=== PATIENT | male | born 1950 | race Hispanic/Latino ===

== ENCOUNTER 2016-10-28 09:57 | Day surgery (SDC) | payer BC ==
[~2016-10-28 09:57] MED LIST: ADRENALIN ONE; DEPO-MEDROL ONE; MARCAINE-EPI 0.25%-1:200,000 INFILTRATI ONE; NACL 0.9% 1000 ML 1,000 ML IV SCH; PEPCID PO NR; SUBLIMAZE IV ONE; VANCOMYCIN/NS 1 GM/250 ML 1 GM/250 ML BAG IV NR; VERSED IV NR
[2016-10-28] MEDS ORDERED: CLONIDINE 1,000 MCG/10 ML VIAL EP ONE (12:03)
[2016-10-28] MEDS ORDERED: XYLOCAINE 1% 20 mL ONE (12:03)
[2016-10-28] MEDS ORDERED: DECADRON ONE (12:03)
--- NOTE | 2016-10-28 12:08 | Anesthesia Consultation ---
Anesthesia Consult and Med Hx Date of service: 10/28/16 - Airway Anesthetic Teeth Evaluation: Caps ROM Head & Neck: Adequate Mental/Hyoid Distance: Adequate Mallampati Class: Class II Intubation Access Assessment: Good - Pulmonary Exam CTA: Yes - Cardiac Exam Cardiac Exam: No Murmur - Pre-Operative Health Status ASA Pre-Surgery Classification: ASA2 Proposed Anesthetic Plan: General Nerve Block: IS - Pulmonary Hx Smoking: Yes (STOPPED 1984, 2 1/2PPD X 20 YRS) Hx Sleep Apnea: No (GRACY PRE SCREEN HIGH RISK) - Cardiovascular System Hx Hypertension: Yes (X 11 YRS) - Other Systems Hx Cancer: No
--- NOTE | 2016-10-28 12:08 | Anesthesia Day of Surgery ---
Anesthesia Day of Surgery - Day of Surgery Patient Examined: Yes Patient H&P Reviewed: Yes Patient is NPO: Yes
[2016-10-28] MEDS ORDERED: DIPRIVAN 10 MG/ML IV ONE (12:27)
[2016-10-28] MEDS ORDERED: SUBLIMAZE ONE (12:27)
[2016-10-28] MEDS ORDERED: ePHEDrine SULFATE ONE (13:12)
[2016-10-28] MEDS ORDERED: ADRENALIN IV ONE (13:25)
[2016-10-28] MEDS ORDERED: QUELICIN ONE (13:40)
[2016-10-28] MEDS ORDERED: XYLOCAINE MPF 2% ONE (13:40)
[2016-10-28] MEDS ORDERED: ZEMURON IV ONE (13:40)
[2016-10-28] MEDS ORDERED: ZOFRAN ONE (13:41)
[2016-10-28] MEDS ORDERED: MARCAINE-EPI 0.25%-1:200,000 INFILTRATI ONE (14:25)
[2016-10-28] MEDS ORDERED: NORCO 5/325 PO PRN (15:13)
[2016-10-28] MEDS ORDERED: PERCOCET 5/325 PO ONE (17:00)
[2016-10-28 17:01] VITALS: BP 147/70
--- NOTE | 2016-10-28 17:12 | Post Anesthesia Evaluation ---
- Post Anesthesia Evaluation Patient Participated: Yes Airway Patent: Yes Stable Respiratory Function: Yes Nausea/Vomiting: No Temp > 96.8F: Yes Pain Manageable: Yes Adequeate Hydration: Yes Anesthesia Complications: No Block Receding Appropriately: Not Applicable Patient on Ventilator: No
== END 2016-10-28 17:23 | disposition home or self-care (01) ==
LOC: OR 09:57
PROVIDERS: ATTEND Orthopaedic Surgery
DX: M75.21 Bicipital tendinitis, right shoulder (principal); M94.211 Chondromalacia, right shoulder; M19.011 Primary osteoarthritis, right shoulder; M24.011 Loose body in right shoulder; M75.51 Bursitis of right shoulder; M75.41 Impingement syndrome of right shoulder; I10 Essential (primary) hypertension; E66.9 Obesity, unspecified; Z68.36 Body mass index [BMI] 36.0-36.9, adult; Z79.82 Long term (current) use of aspirin; Z79.899 Other long term (current) drug therapy; Z88.0 Allergy status to penicillin; Z88.2 Allergy status to sulfonamides; Z87.891 Personal history of nicotine dependence
CPT/HCPCS: 29823; 29824; 29828; 36415; 84132; C1713; J0171; J0330; J0735; J1100; J2250; J2405; J2704; J3010; J3370; J7030; J1030